=== PATIENT | female | born 1965 | race Hispanic/Latino ===

== ENCOUNTER 2021-08-10 00:49 | Day surgery (SDC) | payer OTHER, SELFPAY ==
[2021-07-27 13:49] VITALS: BMI 28.0
[2021-08-10 06:44] VITALS: BP 134/84; PULSE 83; RESP 18; TEMP 36.6; O2SAT 99
[2021-08-10] MEDS: LACTATED RINGERS 1,000 ML 150 ML IV CONT (06:55)
[2021-08-10 07:00] LABS: Glucose Point of Care 165 mg/dl (65-105)
--- NOTE | 2021-08-10 08:00 | WPDANESEPPF ---
Anes - Initial Pre Proc Eval Procedure: Operation Date: 08/10/21 08:15 Proposed Procedures p Screening Colonoscopy - Maninder Tejada MD Date/Time: 08/10/21 08:00 Surgeon: Maninder Tejada MD Pre Op Diagnosis: neoplasm screening Patient Data Age: 56 Gender: F Height: 1.6 m Weight: 72.1 kg Last Vital Signs Temp 97.8 F 08/10/21 06:44 Pulse 83 08/10/21 06:44 Resp 18 08/10/21 06:44 BP 134/84 08/10/21 06:44 Pulse Ox 99 08/10/21 06:44 O2 Del Method Room Air 08/10/21 06:44 Allergies Allergy/AdvReac Type Severity Reaction Status Date / Time cat dander Allergy Mild sneeze and Verified 08/10/21 06:43 cough house dust Allergy Mild sneeze and Verified 08/10/21 06:43 hives mold Allergy Mild sneezing Verified 08/10/21 06:43 and hives pollen extracts Allergy Mild sneeze and Verified 08/10/21 06:43 cough Home Medications Medication Instructions Recorded Confirmed Type cholecalciferol (vitamin D3) 50 50 mcg PO DAILY 06/24/21 07/27/21 History mcg (2,000 unit) capsule lisinopril 10 mg tablet 10 mg PO DAILY 06/24/21 07/27/21 History metformin 500 mg tablet 500 mg PO DAILY 06/24/21 07/27/21 History multivitamin 1 tablet PO DAILY 06/24/21 07/27/21 History rosuvastatin 20 mg tablet 20 mg PO DAILY 06/24/21 07/27/21 History semaglutide (Ozempic) 0.25 mg subcut WEEKLY 06/24/21 07/27/21 History vitamin B complex (B 1 tablet PO DAILY 06/24/21 07/27/21 History Complex-Vitamin B12) Laboratory Tests 08/10/21 06:51 POC Capillary Glucose 165 mg/dl H mg/dl (65-105) Patient hx anesthesia problems: none Family hx anesthesia problems: none Results Review: All pre-operative results and documents have been reviewed as part of the pre-operative evaluation. [facility]LY [facility] Past Medical History Medical History (Updated 06/29/21 @ 23:36 by Hollie Johnson MD) Benign essential HTN Diabetes mellitus Sadaf's thyroiditis Hyperlipidemia Kidney stones Family History Family History (Updated 06/24/21 @ 14:08 by Balbina Blandon) Father Colon cancer Diabetes mellitus Mother Diabetes mellitus Depression Heart disease Sibling Diabetes mellitus Depression Grandparent Diabetes mellitus Depression Social History Social History (Updated 06/24/21 @ 14:07 by Balbina Blandon) Social History: Smoking status: Never smoker Second hand tobacco smoke exposure: No Alcohol intake: current Drinks per week: 2 Alcohol use details: occasionally Substance use: never Substance use type: does not use Living arrangements: with family Gender identity (if verbalized by the patient): Female Sexual Orientation (if Verbalized by the Patient): Straight or Heterosexual Spiritual care concerns: No Anes - Eval Final PreProcedure Day of Procedure 08/10/21 08:00 Patient weight: normal Heart: regular rate and rhythm Lungs: clear to auscultation Airway: Mallampati scale class II Neurological: alert and oriented Last oral intake: >/= 8 hours ASA classification: III Emergent: no Anesthetic plan: proceed Anesthesia type and monitoring: general GIVS and standard monitoring Results Review: All pre-operative results and documents have been reviewed as part of the pre-operative evaluation. Informed Consent: The patient's anesthetic plan and its attendant risks and benefits were discussed with the patient/family/POA. Questions were solicited and answers provided to the satisfaction of the patient/family/POA.
--- NOTE | 2021-08-10 08:07 | PM.HPGS ---
History of Present Illness History of Present Illness Consent: Risks, benefits, and alternatives have been discussed and questions answered. Patient agrees to proceed with procedure. Chief complaint: neoplasm screening Narrative: Camila Christianson is a 56 year old female with last colonoscopy in 2016, father had colon cancer Review of Systems Constitutional: Constitutional: Denies headache(s) and Denies weakness Eyes: Eyes: Denies blurry vision ENT: Reports Normal hearing present, Denies headache(s) and Denies neck pain Cardiovascular: Cardiovascular: Denies chest pain and Denies dyspnea Respiratory: Respiratory: Denies dyspnea Gastrointestinal: Gastrointestinal: Reports no additional gastrointestinal complaints Genitourinary: Genitourinary: Denies dysuria Musculoskeletal: Musculoskeletal: Denies neck pain Integumentary/Breasts: Skin/Breast: Denies dry skin Neurologic: Reports Normal hearing present, Denies headache(s) and Denies weakness Psychiatric: Psychiatric: Denies anxiety Endocrine: Endocrine: Denies change in body appearance Hematologic/Lymphatic: Hematologic/Lymphatic: Denies easy bleeding Allergic/Immunologic: Allergic/Immunologic: Denies urticaria PMFSH Past Medical History Medical History (Updated 08/10/21 @ 08:08 by Maninder Tejada MD) Benign essential HTN Diabetes mellitus Family history of colon cancer in father Sadaf's thyroiditis Hyperlipidemia Kidney stones Family History Family History (Updated 06/24/21 @ 14:08 by Balbina Blandon) Father Colon cancer Diabetes mellitus Mother Diabetes mellitus Depression Heart disease Sibling Diabetes mellitus Depression Grandparent Diabetes mellitus Depression Social History Social History (Updated 06/24/21 @ 14:07 by Balbina Blandon) Social History: Smoking status: Never smoker Second hand tobacco smoke exposure: No Alcohol intake: current Drinks per week: 2 Alcohol use details: occasionally Substance use: never Substance use type: does not use Living arrangements: with family Gender identity (if verbalized by the patient): Female Sexual Orientation (if Verbalized by the Patient): Straight or Heterosexual Spiritual care concerns: No Meds Home Medications and Allergies Home Medications Medication Instructions Recorded Confirmed Type cholecalciferol (vitamin D3) 50 50 mcg PO DAILY 06/24/21 07/27/21 History mcg (2,000 unit) capsule lisinopril 10 mg tablet 10 mg PO DAILY 06/24/21 07/27/21 History metformin 500 mg tablet 500 mg PO DAILY 06/24/21 07/27/21 History multivitamin 1 tablet PO DAILY 06/24/21 07/27/21 History rosuvastatin 20 mg tablet 20 mg PO DAILY 06/24/21 07/27/21 History semaglutide (Ozempic) 0.25 mg subcut WEEKLY 06/24/21 07/27/21 History vitamin B complex (B 1 tablet PO DAILY 06/24/21 07/27/21 History Complex-Vitamin B12) Allergies Allergy/AdvReac Type Severity Reaction Status Date / Time cat dander Allergy Mild sneeze and Verified 08/10/21 06:43 cough house dust Allergy Mild sneeze and Verified 08/10/21 06:43 hives mold Allergy Mild sneezing Verified 08/10/21 06:43 and hives pollen extracts Allergy Mild sneeze and Verified 08/10/21 06:43 cough Vital Signs Vital Signs - 24 hr 08/10/21 06:44 Temperature 97.8 F Pulse Rate 83 Respiratory Rate 18 Blood Pressure 134/84 Pulse Oximetry 99 Oxygen Delivery Room Air Exam Const: General: comfortable and no acute distress HENMT: General nose exam: Normal nares present Eyes: General: appearance normal, both eyes and all related structures Neck: Neck: no JVD Resp: Auscultation: clear to auscultation bilaterally Cardio: Rate: regular rate Rhythm: regular rhythm GI: Inspection: non-distended GI Palp: Yes Soft to palpation Skin: General skin exam: normal color Neuro: General: gait normal Speech: normal speech Extrem: General: normal to inspe
[2021-08-10 08:32] VITALS: BP 118/67; PULSE 85; RESP 21; O2SAT 100
[2021-08-10 08:42] VITALS: BP 124/76; PULSE 75; RESP 14; O2SAT 100
[2021-08-10 08:52] VITALS: BP 136/83; PULSE 70; RESP 16; O2SAT 100
== END 2021-08-10 09:02 | disposition home or self-care (01) ==
PROVIDERS: PCP Family Medicine; Visit Provider Internal Medicine Gastroenterology
PROC: 0DJD8ZZ Inspection of Lower Intestinal Tract, Via Natural or Artificial Opening Endoscopic (ICD-10-PCS; CPT 45378; principal; 2021-08-10 08:15)
DX: Z12.11 Encounter for screening for malignant neoplasm of colon (principal); D12.0 Benign neoplasm of cecum; K57.30 Diverticulosis of large intestine without perforation or abscess without bleeding; K64.8 Other hemorrhoids; I10 Essential (primary) hypertension; E11.9 Type 2 diabetes mellitus without complications; E78.5 Hyperlipidemia, unspecified; E06.3 Autoimmune thyroiditis; Z80.0 Family history of malignant neoplasm of digestive organs; Z87.442 Personal history of urinary calculi
CPT/HCPCS: 45380; 82948; 88305; J2704; J7120

== ENCOUNTER 2021-09-15 17:41 | Emergency (ER) | payer OTHER, SELFPAY ==
--- NOTE | ~2021-09-15 | XR_ITS ---
XR femur RT min 2V DATE: 09/15/2021 18:20 INDICATION: Pain, swelling following injury TECHNIQUE: AP and lateral views of right femur COMPARISON: None FINDINGS: Mild superior pole patellar enthesopathy and more prominent patellar enthesopathy and true inferiorly at the patellar tendon insertion. No fracture or dislocation, periosteal reaction or bone destruction of the right femur. Normal alignm ent at the right hip and knee joints. IMPRESSION: No significant abnormality of the right femur. No fracture or dislocation or bone destruc tion Reviewed, dictated and finalized at location B. IMPRESSION: No significant abnormality of the right femur. No fracture or dislo cation or bone destruction
--- NOTE | ~2021-09-15 | XR_ITS ---
XR lumbar spine 2-3V DATE: 09/15/2021 18:41 INDICATION: Low back pain. No known injury. TECHNIQUE: AP, lateral, coned lateral lumbosacral views COMPARISON: None FINDINGS: There is normal alignment of the lumbar spine. There is moderate degenerative disease at L2-3. Minimal degenerative disc disease at L3-4. Remaining lumbar and lumbosacral interspaces are relatively preserved. No fracture or bone destruction or spondylolisthesis. The included lower thoracic and lumbar pedicles are intact. Degenerative change at the right sacroiliac joint. The sacral iliac joints are otherwise intact. IMPRESSION: Mild degenerative disc disease at L3-4, moderately prominent degenerative disc disease at L2-3 Reviewed, dictated and finalized at location B. IMPRESSION: Mild degenerative disc disease at L3-4, moderately prominent degene rative disc disease at L2-3
[2021-09-15 17:44] VITALS: BP 179/87; PULSE 87; RESP 12; TEMP 37; O2SAT 100
--- NOTE | 2021-09-15 18:21 | PC.NURSE ---
JOVANNA Solorzano at bedside to assess pt.
[2021-09-15] MEDS: HYDROcodone/acetaminophen (*CRX) 5-325 MG TABLET 1 TAB PO (18:32)
--- NOTE | 2021-09-15 18:33 | ED.LOWEXIN ---
HPI - Extremity Injury (Lower) General Chief Complaint: Extremity Injury, Lower Stated Complaint: right leg pain Time Seen by Provider: 09/15/21 17:53 Source: patient Mode of arrival: ambulatory Limitations: no limitations History of Present Illness HPI Narrative: This is a 56-year-old female that presents to the emergency department after an injury just prior to arrival. Reports she was sitting in a dental chair and her right leg accidentally got pinned in between the chair and the armrest. She believes her leg was stuck for a couple of minutes before the dentist was able to help her get her leg out. She has had pain in the right thigh since. She also has now started to have some low back pain and soreness. Denies numbness or weakness. Related Data Home Medications Medication Instructions Recorded Confirmed cholecalciferol (vitamin D3) 50 50 mcg PO DAILY 06/24/21 07/27/21 mcg (2,000 unit) capsule lisinopril 10 mg tablet 10 mg PO DAILY 06/24/21 07/27/21 metformin 500 mg tablet 500 mg PO DAILY 06/24/21 07/27/21 multivitamin 1 tablet PO DAILY 06/24/21 07/27/21 rosuvastatin 20 mg tablet 20 mg PO DAILY 06/24/21 07/27/21 semaglutide 0.25 mg or 0.5 mg (2 0.25 mg subcut WEEKLY 06/24/21 07/27/21 mg/1.5 mL) subcutaneous pen injector (Ozempic) vitamin B complex (B 1 tablet PO DAILY 06/24/21 07/27/21 Complex-Vitamin B12 tablet) Allergies Allergy/AdvReac Type Severity Reaction Status Date / Time cat dander Allergy Mild sneeze and Verified 09/15/21 18:46 cough house dust Allergy Mild sneeze and Verified 09/15/21 18:46 hives mold Allergy Mild sneezing Verified 09/15/21 18:46 and hives pollen extracts Allergy Mild sneeze and Verified 09/15/21 18:46 cough Review of Systems Review of Systems: CONSTITUTIONAL: Denies fever, MUSCULOSKELETAL: Reports back pain, joint pain, and myalgia. NEUROLOGIC: Denies numbness, or weakness. All systems reviewed & are unremarkable except as noted in HPI and below PMFSH Past Medical History Medical History Benign essential HTN Diabetes mellitus Family history of colon cancer in father Sadaf's thyroiditis Hyperlipidemia Kidney stones Family History Family History Father Colon cancer Diabetes mellitus Mother Diabetes mellitus Depression Heart disease Sibling Diabetes mellitus Depression Grandparent Diabetes mellitus Depression Social History Social History (Updated 08/31/21 @ 15:25 by Balbina Blandon) Social History: Smoking status: Never smoker Second hand tobacco smoke exposure: No Alcohol intake: current Alcohol use details: occasionally Substance use: never Substance use type: does not use Gender identity (if verbalized by the patient): Female Sexual Orientation (if Verbalized by the Patient): Straight or Heterosexual Spiritual care concerns: No Exam Narrative: GENERAL: Well-appearing, well-nourished, and in no acute distress. HEAD: Normocephalic, atraumatic. EYES: EOMI. CHEST: No respiratory distress. HEART: Regular rate EXTREMITIES: Normal range of motion. No edema. Normal DP pulse. Normal sensation. Strength equal in bilateral lower extremities (5/5). Compartments are soft SKIN: Warm, dry, no rash. NEURO: No focal deficits. Alert and oriented x3. PSYCH: Normal mood and affect Course Vital Signs Vital signs: Vital Signs Temperature 98.6 F 09/15/21 17:44 Pulse Rate 87 09/15/21 17:44 Respiratory Rate 12 09/15/21 17:44 Blood Pressure 179/87 H 09/15/21 17:44 Pulse Oximetry 100 09/15/21 17:44 Oxygen Delivery Room Air 09/15/21 17:44 Temperature 98.6 F 09/15/21 17:44 Pulse Rate 87 09/15/21 17:44 Respiratory Rate 12 09/15/21 17:44 Blood Pressure 179/87 H 09/15/21 17:44 Pulse Oximetry 100 09/15/21 17:44 Oxygen Delivery Room Air 09/15/21 17:44
--- NOTE | 2021-09-15 18:34 | PC.NURSE ---
Patient back to Radiology fro xay of back
[2021-09-15 19:03] LABS: Basophils Absolute Auto 0.1 K/mm3 (0.0-0.1); Basophils Percent Auto 0.6 % (0.2-1.2); Eosinophils Absolute Auto 0.4 K/mm3 (0-0.3); Eosinophils Percent Auto 4.1 % (0-4.4); Hematocrit 43.2 % (37.0-47.0); Immature Granulocyte Absolute 0.02 K/mm3 (0.00-0.031); Immature Granulocyte Percent A 0.2 % (0-0.5); Lymphocytes Absolute Auto 1.68 K/mm3 (0.9-3.2); Lymphocytes Percent Auto 19.1 % (18.3-44.2); Mean Corpuscular HGB Conc 32.4 g/dl (32-36); Mean Corpuscular Hemoglobin 30.6 pg (26-34); Mean Corpuscular Volume 94.3 fl (80-100); Mean Platelet Volume 11.2 fl (7.4-10.4); Monocytes Absolute Auto 0.7 K/mm3 (0.1-0.6); Monocytes Percent Auto 7.8 % (2.6-8.5); Neutrophils Percent Auto 68.2 % (45.5-73.1); Platelet Count Result 235 k/mm3 (150-375); Red Blood Count 4.58 M/mm3 (4.2-5.4); Red Cell Distribution Width 12.7 % (11.5-14.5); White Blood Count 8.8 K/mm3 (4.5-10.0)
--- NOTE | 2021-09-15 19:11 | PC.NURSE ---
Patient report given to STEFF Sanford. All questions answered and care of patient transferred.
[2021-09-15 19:13] LABS: Alanine Aminotransferase 58 U/L (6-35); Albumin Level 4.8 g/dL (3.5-5.1); Alkaline Phosphatase 97 U/L (38-126); Anion Gap 9 mmol/L (8-16); Aspartate Amino Transferase 37 U/L (14-36); Bilirubin,Total 0.4 mg/dL (0.2-1.3); Blood Urea Nitrogen 13 mg/dL (7-17); Calcium 9.5 mg/dL (8.4-10.2); Carbon Dioxide 25 mmol/L (22-30); Chloride 105 mmol/L (98-107); Creatine Kinase 223 U/L (30-135); Estimated CRCL calculation 67 ml/min; Estimated Glomerular Filt Rate > 60; Glucose 155 mg/dL (65-110); Sodium 139 mmol/L (137-145)
[2021-09-15] MEDS: SODIUM CHLORIDE 0.9% IV 1,000 ML 999 ML IV CONT (20:19)
== END 2021-09-15 21:15 | disposition home or self-care (01) ==
PROVIDERS: Physician Assistant; Emergency Provider Preventive Medicine Aerospace Medicine; PCP Family Medicine
DX: S89.91XA Unspecified injury of right lower leg, initial encounter (principal); M54.50 Low back pain, unspecified; I10 Essential (primary) hypertension; E11.9 Type 2 diabetes mellitus without complications; E06.3 Autoimmune thyroiditis; E78.5 Hyperlipidemia, unspecified; Z87.442 Personal history of urinary calculi; Z79.84 Long term (current) use of oral hypoglycemic drugs; M51.36 Other intervertebral disc degeneration, lumbar region; W23.1XXA Caught, crushed, jammed, or pinched between stationary objects, initial encounter
CPT/HCPCS: 36415; 72100; 73552; 80053; 82550; 85025; 96360; 99284; A9270; J7030

== ENCOUNTER 2024-09-18 14:02 | Outpatient (CLI) | payer OTHER, SELFPAY ==
--- NOTE | ~2024-09-18 | MR_ITS ---
MRI of the lumbar spine Clinical History: Right sciatica Technique: Axial T2-weighted images, and sagittal T1-weighted, T2-weighted, and T2 fat-sat images wer e acquired. Findings: There is no fracture or subluxation of the lumbar spine. Vertebral bodies maintain normal h eight and alignment. No bone marrow signal abnormality seen. At L1-L2, there is no disc bulge or herniation. There is mild to moderate facet hypertrophy. No spina l canal stenosis or neural foraminal narrowing. At L2-L3, there is minimal degenerative disc narrowing with moderate facet hypertrophy. No spinal can al stenosis or neural foraminal narrowing. At L3-L4, there is moderate facet arthropathy. No spinal canal stenosis or neural foraminal narrowing . At L4-L5, there is minimal disc bulge. There is moderate facet hypertrophy. No spinal canal stenosis or neural foraminal narrowing. At L5-S1, there is a large disc extrusion at the right paracentral region extending inferiorly, behin d the S1 vertebral body, probably impinging the descending right-sided S1-S2 level nerve root. No fra nk spinal canal stenosis at the L5 and S1 level, there is right lateral recess stenosis. There is mod erate to advanced right neural foraminal narrowing. Left neural foramen preserved. Paravertebral soft tissues are otherwise unremarkable. Impression: Large disc extrusion the right paracentral region at L5-S1, extending inferiorly behind the S1 verteb ral body, and probably impinging the descending right-sided S1-S2 level nerve root. Additional right lateral recess stenosis and moderate to advanced right neural foraminal narrowing at L5-S1. Reviewed, dictated and finalized at [facility]. Impression: Large disc extrusion the right paracentral region at L5-S1, extending inferiorl y behind the S1 vertebral body, and probably impinging the descending right-kimberlee ed S1-S2 level nerve root. Additional right lateral recess stenosis and moderate to advanced right neural foraminal narrowing at L5-S1.
--- OUTSIDE RECORDS SUMMARY | 2024-09-18 14:08 | XMS_ITS | Clinical Summary ---
Author Organization [facility] [address] [place] [address] Phone Care Team Providers Care Liner Checker Name Role Phone Jah Agustin MD Primary Care Provider [phone] Allergies Active Allergy Reactions Criticality Noted Date Comments Sulfamethoxazole-Trimethoprim Rash Medium 2019 Medications multivitamin capsule take 1 capsule by oral route every day 0 2 Active metFORMIN (GLUCOPHAGE) 1,000 mg tablet take 1 tablet by oral route 2 times every day with morning and evening meals 0 0 4 Active lancets 33 gauge misc OneTouch Delica Lancets 33 gauge Active blood glucose diagnostic strip OneTouch Verio strips Active lisinopriL (PRINIVIL,ZESTR IL) 10 mg tablet Take 10 mg by mouth daily Active cyanocobalamin (Vitamin B-12) 1,000 mcg tabletIndicatio ns:Prevention of Vitamin B12 Deficiency Take 1,000 mcg by mouth daily Active semaglutide (Ozempic) 0.25 mg or 0.5 mg(2 mg/1.5 mL) pen injector injection Ozempic 0.25 mg or 0.5 mg (2 mg/1.5 mL) subcutaneous pen injector INJECT 0.5MG EVERY WEEK BY SUBCUTANEOUS ROUTE WITH MEALS FOR 30 DAYS Active triamcinolone (KENALOG) 0.1 % ointmentIndicat ions:Acute vulvitis Apply topically 2 (two) times a day as needed for irritation 30 g 3 2 Active Active Problems Problem Noted Date Diagnosed Date Type 2 diabetes mellitus 01/23/2014 Overview (06/23/2016): Diabetes mellitus type 2 Surgical History Surgery Date Site/Laterality Comments SECTION , HELLP @ 33wks: section Medical History Medical History Date Comments Hx Other Medical , HELL P @ 33wks; Comments: RED 01/23/2014 - Family History Medical History Relation Name Comments Diabetes Mother Diabetes mellit us; Diabetes Sister x2 Diabetes mellit us; Relation Name Status Comments Mother Sister x2 Social History Tobacco Use Types Packs/Day Years Used Date Smoking Tobacco: Never Smokeless Tobacco: Never Tobacco Cessation:Counseling Given: Not Answered Alcohol Use Standard Drinks/Week Comments Yes 0 (1 standard drink = 0.6 oz pur e alcohol) Comments No Sex and Gender Information Value Date Recorded Sex Assigned at Not on file Legal Sex Female 1:42 AM JAILOR Gender Identity Not on file Sexual Orientation Not on file 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 Not on file Not on file Not on file Obstetrics History Para Term AB IAB SAB Ectopic Multiple Livin g Live Births 2 1 0 1 1 1 Date Outcome GA Total Labor Labor/2nd/3rd Weight Sex Type Anes PTL [place] A1 A5 Name Clin AB Last Filed Vital Signs Vital Sign Reading Time Taken Comments Blood Pressure 126/76 01/16/2022 9:56 AM CDT Pulse 70 12/17/2012 3:39 PM CDT Temperature 36 C (96.8 F) 12/22/2019 9:51 AM CDT Respiratory Rate - - Oxygen Saturation - - Inhaled Oxygen Concentration - - Weight 72.2 kg (159 lb 3.2 oz) 01/16/2022 9:56 A M CDT Height 161.3 cm (5' 3.5) 01/16/2022 9:56 AM CDT Body Mass Index 27.76 01/16/2022 9:56 AM CDT Plan of Treatment Health Maintenance Due Date Last Done Comments Albumin Creatinine Ratio, Urine 1965 Colon Cancer Screening-Colonoscopy 1965 Depression Screening 1965 Hemoglobin A1C 1965 Hepatitis C Screening 1965 eGFR 1965 Dilated Eye Exam 1965 Foot Exam 1965 Lipid Panel 1965 DTaP/Tdap/Td Vaccine (1 - Tdap) 1976 Hepatitis B Screening 1983 Pneumococcal vaccine <65 (1 of 2 - PCV) 1984 Zoster Vaccine (1 of 2) 2015 Breast Cancer Screening-Mammogram 01/21/2022 01/21/2021, 11/11/2019, 2018, Additional history exists Cervical Cancer Screening 01/16/20232021, 04/02/2017, 12/17/2012, Additional history exists Regular Well Visit/Exam 18-64 01/16/2023, 01/13/2021, 12/22/2019, Additional history exists Influenza Vaccine (#1) 2024 12/18/2017 Procedures Procedure Name Priority Date/Time Associated Diagnosis Comments PAP AND HIGH RISK HPV, REFLEX TO GENOTYPING Routine 01/16/2022 11:38 AM CDT Screening for malignant neoplasm of the cervix SCREENING MAMMOGRAM BILATERAL W SALEEM Schedule Routine, Read Routine (OP Routine) 01/21/2021 8:59 AM CDT Encounter for screening mammogram for breast cancer from Last 3 Months or Most Recently Relevant to Health Maintenance Results * Pap and High Risk HPV, reflex to Genotyping (01/16/2022 11:38 AM CDT) Thin prep (Pap test) 01/16/2022 11:38 AM CDT 01/16/2022 11:38 AM CDT Narrative PATHOLOGY CH - 01/18/2022 12:13 PM CDT [facility] Department of Pathology [address] [place], [place] [id number] Final Report with Addendum Note to Patients: This report may contain a detailed description of human tissue sent by a health care provider to the laboratory for pathologic evaluation. The content of this report is essential for diagnosis and may provide important critical findings. This information may be unfamiliar to patients to review without a medical professional present. It is advised that the patient review this report in the presence of a health care provider who can answer questions and explain the details. Patient Name: CAMILA CHRISTIANSON Address: [address] [place] [address] [place] [address] Gender: F : 1965 (Age: 56) Service: Laboratory Location: Hospital #: [id number] Patient Type: SPECIMEN Taken: 01/16/2022 Received: 01/16/2022 Accessioned:: 01/17/2022 Reported: 01/18/2022 Physician(s): MD Claribel Figuerao MD Diagnosis: Source of Specimen: SCREENING THIN PREP IMAGED PAP w/ HPV Specimen Adequacy: - Satisfactory for evaluation; endocervical/transformation zone component present General Category: - Negative for intraepithelial lesion or malignancy KELLY Haley(ASCP) Report Electronically Reviewed and Signed Out By KELLY Haley(ASCP) 01/18/2022 12:13:30Addenda: HPV Test Interpretation NEGATIVE for types 16, 18, 31, 33, 35, 39, 45, 51, 52, 56, 58, 59, 66 and 68. Test performed utilizing Gen-Probe Aptima assay. KELLY Boyd(ASCP)Report Electronically Reviewed and Signed Out By SANTY BoydASC) 01/18/2022 09:42:47 Specimen(s) Received: A: SCREENING THIN PREP IMAGED PAP w/ HPV Clinical History: Menstrual History: Post-menopausal Previous Negative Pap: 03/2017 The Pap test is a screening test used to aid in the detection of cervical cancer and its precursors. It should not be the sole means by which malignant and premalignant lesions are diagnosed. Both false negative and false positive results may occur. It also has poor sensitivity for the detection of endometrial lesions and should not be used to evaluate suspected endometrial abnormalities. For these reasons it is most important to obtain Pap tests at regular intervals. The performance characteristics of some immunohistochemical stains, fluorescence in-situ hybridization tests and immunophenotyping by flow cytometry cited in this report (if any) were determined by the Surgical Pathology Department at [facility] as part of an ongoing quality systems engineer program and in compliance with federally mandated regulations drawn from the Clinical Laboratory Improvement Act of 1988 (CLIA '88). Some of these tests rely on the use of analyte specific reagents and are subject to specific labeling requirements by the US Food and Drug Administration. Such diagnostic tests may only be performed in a facility that is certified by the Department of Health and Human Services as a high complexity laboratory under CLIA '88. The FDA has determined that such clearance or approval is not necessary. This test is used for clinical purposes. It should not be regarded as investigational or for research. Nevertheless, federal rules concerning the medical use of analyte specific reagents require that the following disclaimer be attached to the report: This test was developed and its performance characteristics determined by the Surgical Pathology Department [facility]. It has not been cleared or approved by the U. S. Food and Drug Administration. Claribel Espinoza MD LAB CYTOLOGY ORDERABL ES Final Result PATHOLOGY [address] [place] [address] * Screening Mammogram Bilateral W Saleem (01/21/2021 8:59 AM CDT) Anatomical Region Laterality Modality Breast Bilateral Mammography Narrative 01/21/2021 2:48 PM CDT BILATERAL DIGITAL MAMMOGRAPHY The present examination has been compared to prior imaging studies dated 11 November 2019. Mammography Findings CAD (computer-aided detection) software was utilized. The breasts are heterogeneously dense. This may lower the sensitivity of mammography. No masses, significant calcifications or other abnormalities are seen. Impression There is no mammographic evidence of malignancy. Screening mammogram in 1 year is recommended. BI-RADS Category 1: Negative PATIENT LETTER SENT Claribel Espinoza MD IMG MAMMO PROCEDURES Final Result from Last 3 Months or Most Recently Relevant to Health Maintenance Insurance [employer] [facility] [place] [address] [place] [id number] [facility] [id number] Care Teams Liner Checker Relationship Specialty Start Date End Date Jah Agustin MD [address] [place] [address] PCP - General 01/22/14
--- OUTSIDE RECORDS SUMMARY | 2024-09-18 14:08 | XMS_ITS | Referral Summary ---
Author Organization [facility] 1 uTaP Address [address] [place] [address] Phone Care Team Providers Care Specialist Managers Name Role Phone Jah Agustin MD Primary Care Provider [phone] Allergies Active Allergy Reactions Criticality Noted Date [...] 01/23/2014 Overview (06/23/2016): Diabetes mellitus type 2 Social History Tobacco Use Types Packs/Day Years Used Date Smoking Tobacco: Never Smokeless Tobacco: Never Tobacco Cessation:Counseling Given: Not Answered Alcohol Use Standard Drinks/Week Comments Yes 0 (1 standard drink = 0.6 oz pur e alcohol) Comments No Sex and Gender Information Value Date Recorded Sex Assigned at Not on file Legal Sex Female 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 Gender Identity Not on file Sexual Orientation Not on file 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 Not on file Not on file Not on file Last Filed Vital Signs Vital Sign Reading [...] 01/16/2022 9:56 AM CDT Plan of Treatment Not on file Procedures Procedure Name Priority Date/Time Associated Diagnosis Comments PAP AND HIGH RISK HPV, REFLEX TO GENOTYPING Routine 01/16/2022 11:38 AM CDT Screening for malignant neoplasm of the cervix SCREENING MAMMOGRAM BILATERAL W TYLER Schedule Routine, Read Routine (OP Routine) 01/21/2021 8:59 AM CDT Encounter for screening mammogram for breast cancer from Last 3 Months or Most Recently Relevant to Health Maintenance Results * Pap and High Risk HPV, reflex to Genotyping (01/16/2022 11:38 AM CDT) Thin prep (Pap test) 01/16/2022 11:38 AM CDT 01/16/2022 11:38 AM CDT Narrative PATHOLOGY CH - 01/18/2022 12:13 PM CDT [facility] Department of Pathology [address] [place], [place] [id number] Final Report with Addendum Note to Patients: [...] questions and explain the details. Patient Name: YANCI CHRISTIANSON Address: [address] [place] [address] Gender: F : 1965 (Age: 56) Service: Laboratory Location: [facility] #: [id number] Patient Type: SPECIMEN Taken: 01/16/2022 Received: 01/16/2022 Accessioned:: 01/17/2022 Reported: 01/18/2022 Physician(s): MD Claribel Figueroa MD Diagnosis: Source of Specimen: SCREENING THIN PREP IMAGED PAP w/ HPV Specimen Adequacy: - Satisfactory for evaluation; endocervical/transformation zone component present General Category: - Negative for intraepithelial lesion or malignancy KELLY Haley(ASCP) Report Electronically Reviewed and Signed Out By SANTY HaleyASC) 01/18/2022 12:13:30Addenda: HPV Test Interpretation NEGATIVE for types 16, 18, 31, 33, 35, 39, 45, 51, 52, 56, 58, 59, 66 and 68. Test performed utilizing Gen-Probe Aptima assay. KELLY Boyd(ASCP)Report Electronically Reviewed and Signed Out By KELLY Boyd(ASCP) 01/18/2022 09:42:47 Specimen(s) Received: A: SCREENING THIN [...] determined by the Surgical Pathology Department at [facility] as part of an ongoing quality specialist program and in compliance with federally mandated [...] characteristics determined by the Surgical Pathology Department [facility]. It has not been cleared or approved by the U. S. Food and Drug Administration. Claribel Espinoza MD LAB CYTOLOGY ORDERABL ES Final Result PATHOLOGY [address] [place] [address] * Screening Mammogram Bilateral W Tyler (01/21/2021 8:59 AM CDT) Anatomical Region Laterality [...] Most Recently Relevant to Health Maintenance Insurance [facility] Address: [address] [place] [address] [facility] [id number] [facility] [id number] Care Teams Specialist Managers Relationship Specialty Start Date End Date Jah Agustin MD [address] [place] [address] PCP - General 01/22/14
--- OUTSIDE RECORDS SUMMARY | 2024-09-18 14:08 | XMS_ITS | Data Portability ---
Author Organization [facility] [employer], Main Office Address [address] [place] [address] Assessment No assessment recorded. Plan of Treatment Reminders Order Date Submit Date Provider Last Modified By Organization Details Last Modified Time Details Appointments None recorded. Lab None recorded. Referral None recorded. Procedures None recorded. Surgeries None recorded. Imaging None recorded. Medication Orders metformin 1,000 mg tablet 2022 023 [facility] [address] [place], [address], 3 11:22:41 Ozempic 1 mg/dose (4 mg/3 mL) subcutaneou s pen injector 2022 023 [facility] [address] [place], [address], 3 13:44:42 rosuvastati n 20 mg tablet 2022 023 [facility] [address] [place], [address], 3 11:22:37 lisinopril 5 mg tablet [address] [facility] [address] [place], [address], 3 13:47:40 Patient TargetsNo targets recorded. Patient InstructionsNo instructions recorded. Reason for Referral None Reported. Results Created Date Observation Date Name Description Value Unit Range Abnormal Flag Note LastModifiedBy Organization Detail LastModifiedTime Result Notes None recorded. Problems Name Problem SNOMED Code Status Onset Date Resolution Date Notes Provider Name and Address Organization Details Recorded Time Sadaf thyroiditi s 70002241 Active 2021 Not Available [facility] 3 18:20:15 Dyslipidem ia 574097213 Active 2021 Not Available [facility] 3 18:20:15 Type 2 diabetes mellitus 37217412 Active 2018 Not Available [facility] 3 18:20:15 Well controlled type 2 diabetes mellitus 297465581 Active 2021 Not Available [facility] 3 18:20:15 Essential hypertensi on 23546057 Active 2021 Not Available [facility] 3 18:20:15 Liver enzymes level above reference range 676547430 Active 2021 Not Available [facility] 3 18:20:15 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 Procedures Surgical History Date Name Laterality Status Provider Name and Address Organization Details Recorded Time 1 delivery completed Not Available [facility] 05/17/2022 18:19:38 Imaging Results None recorded. Procedure Notes None recorded. Medical Equipment None Reported. Allergies No known drug allergies Medications Name Sig Start Date Stop Date Status Note LastModified by Organization Details LastModified Time Prescriptio n - Prior Authorizati on Request USE WITH OZEMPIC INJECTION S ONCE WEEKLY active Not Available Not Available No t Available cyclobenzap rine 10 mg tablet TK 1 T PO QHS PRF SPASMS 12/30 completed Not Available Not Available Not Available prednisone 10 mg tablet TAKE 4 TABLETS BY MOUTH ONCE DAILY FOR 3 DAYS THEN 3 ONCE DAILY FOR 3 DAYS THEN 2 ONCE DAILY FOR 3 DAYS THEN 1 ONCE DAILY FOR 3 DAYS active Not Available Not Available No t Available tizanidine 2 mg tablet TAKE 1 TABLET BY MOUTH THREE TIMES DAILY NEEDED FOR MUSCLE SPASTICIT Y active Not Available Not Available No t Available triamcinolo ne acetonide 0.5 % topical cream APPLY 1 GRAM OF CREAM TOPICALLY TWICE DAILY NEEDED IRRITATIO N 09/07 completed Not Available Not Available Not Available meloxicam 15 mg tablet TK 1/2 T PO BID PRN PAIN 12/30 completed Not Available Not Available Not Available sulfamethox azole 800 mg-trimetho prim 160 mg tablet TK 1 T PO BID FOR 10 DAYS 09/07 completed Not Available Not Available Not Available amoxicillin 875 mg tablet 09/07 completed Not Available Not Available Not Available metformin 1,000 mg tablet TAKE 1 TABLET BY MOUTH TWICE DAILY BEFORE MEAL(S) active Not Available Not Available No t Available triamcinolo ne acetonide 0.1 % topical ointment APPLY OINTMENT TOPICALLY TWICE DAILY NEEDED FOR IRRITATIO N active Not Available Not Available No t Available lisinopril 10 mg tablet Take 1 tablet by mouth once daily in the morning for 90 days active Not Available Not Available No t Available lisinopril 5 mg tablet Take 1 tablet every day by oral route in the morning for 90 days. 2022 active Not Available Not Available Not Avai lable methylpredn isolone 4 mg tablets in a dose pack FPD 09/07 completed Not Available Not Available Not Available hydrocortis one 2.5 % topical ointment APPLY TWICE DAILY NEEDED active Not Available Not Available No t Available fluticasone propionate 50 mcg/actuati on nasal spray,suspe nsion USE 1 SPRAY(S) IN EACH NOSTRIL ONCE DAILY active Not Available Not Available No t Available metformin ER 500 mg tablet,exte nded release 24 hr Take 1 tablet twice a day by oral route with meals for 90 days. 12/28 completed Not Available Not Available Not Available rosuvastati n 20 mg tablet Take 1 tablet every other day by oral route for 90 days. 2022 active Not Available Not Available Not Avai lable Symbicort 160 mcg-4.5 mcg/actuati on HFA aerosol inhaler INHALE 1 PUFF BY MOUTH TWICE DAILY active Not Available Not Available No t Available azelastine 205.5 mcg (0.15 %) nasal spray USE ONE SPRAY IN EACH NOSTRIL ONCE DAILY AT BEDTIME active Not Available Not Available No t Available OneTouch Delica Lancets 33 gauge 03/07 completed Not Available Not Available Not Available OneTouch Verio test strips USE 1 STRIP TO CHECK GLUCOSE THREE TIMES DAILY BEFORE MEAL(S) 03/07 completed Not Available Not Available Not Available Trulicity 1.5 mg/0.5 mL subcutaneou s pen injector INJECT 0.5ML BY INTRAMUSC ULARLY ONCE WEEKLY WITH A MEAL active Not Available Not Available No t Available Bydureon BCise 2 mg/0.85 mL subcutaneou s auto-inject or Inject 2 mg every week by subcutane ous route with meals for 30 days. 03/07 completed Not Available Not Available Not Available Ozempic 1 mg/dose (2 mg/1.5 mL) subcutaneou s pen injector INJECT 0.5MG UNDER THE SKIN ONCE WEEKLY WITH MEALS 03/07 completed Not Available Not Available Not Available Ozempic 0.25 mg or 0.5 mg (2 mg/1.5 mL) subcutaneou s pen injector INJECT 0.5 MG EVERY WEEK BY SUBCUTANE OUS ROUTE WITH MEALS FOR 30 DAYS active Not Available Not Available No t Available Ozempic 1 mg/dose (4 mg/3 mL) subcutaneou s pen injector INJECT 1 MG SUBCUTANE OUSLY ONCE A WEEK AT DINNER active Not Available Not Available No t Available Paxlovid 300 mg (150 mg x 2)-100 mg tablets in a dose pack TAKE 3 TABLETS TOGETHER (TWO 150 MG NIRMATREL VIR TABLETS AND ONE 100 MG RITONAVIR TABLET) BY MOUTH TWICE DAILY FOR 5 DAYS. active Not Available Not Available No t Available Ozempic 0.25 mg or 0.5 mg (2 mg/3 mL) subcutaneou s pen injector INJECT 0.5MG SUBCUTANE OUSLY ONCE A WEEK WITH MEALS active Not Available Not Available No t Available Vitals Date Recorded Body mass index (BMI) Body height Oxygen saturation Oxygen saturation in Arterial blood by Pulse oximetry Heart rate Body temperature Body weight Systolic And Diastolic Provider Name and Address Organization Details Last Updated DateTime 2 26.6 kg/m2 162.56 cm 99 % 99 % 88 /min 97.9 [degF] 14983.8 2 g 105/70 mm[Hg] Not Available [facility] 3 18:19:49 Date Recorded Body mass index (BMI) Body height Oxygen saturation Oxygen saturation in Arterial blood by Pulse oximetry Heart rate Body temperature Body weight Systolic And Diastolic Provider Name and Address Organization Details Last Updated DateTime 1 21.1 kg/m2 162.56 cm 99 % 99 % 76 /min 98.1 [degF] 03176.8 6 g 146/88 mm[Hg] Not Available [facility] 3 18:19:49 Date Recorded Body mass index (BMI) Body height Oxygen saturation Oxygen saturation in Arterial blood by Pulse oximetry Heart rate Body temperature Body weight Systolic And Diastolic Provider Name and Address Organization Details Last Updated DateTime 2 27.2 kg/m2 162.56 cm 97 % 97 % 81 /min 97.8 [degF] 78478.0 3 g 110/75 mm[Hg] Not Available [facility] 3 18:19:49 Date Recorded Body weight Body mass index (BMI) Body height Heart rate Body temperature Systolic And Diastolic Provider Name and Address Organization Details Last Updated DateTime 3 46234.1 6 g 27.1 kg/m2 162.56 cm 74 /min 97.3 [degF] 108/76 mm[Hg] Dasha Murguia MA [place] [facility] 3 11:08:01 Date Recorded Body mass index (BMI) Body height Oxygen saturation Oxygen saturation in Arterial blood by Pulse oximetry Heart rate Body temperature Body weight Systolic And Diastolic Provider Name and Address Organization Details Last Updated DateTime 1 26.8 kg/m2 162.56 cm 98 % 98 % 79 /min 98.1 [degF] 64697.4 1 g 138/78 mm[Hg] Not Available [facility] 3 18:19:49 Social History Question Answer Notes LastModified by Organizat ion Details LastModified Time Tobacco Smoking Status Never Smoker Not Available [facility] 05/17/2022 18:19:33 What Is Your Level Of Caffeine Consumption? Moderate [id number] Information not available 05/17/2022 In The 14 Days Before Symptom Onset, Have You Had Close Contact With A Laboratory-confirm ed COVID-19 While That Case Was Ill? No [id number] Information not available 05/17/2022 In The 14 Days Before Symptom Onset, Have You Had Close Contact With A Person Who Is Under Investigation For COVID-19 While That Person Was Ill? No [id number] Information not available 05/17/2022 Which Illicit Or Recreational Drugs Have You Used? None [id number] Information not available 05/17/2022 What Is Your Relationship Status? [id number] Information not available 05/17/2022 Have You Recently Traveled Abroad? No [id number] Information not available 05/17/2022 Sex: Female Functional Status Question Answer Note LastModified by Organizat ion Details LastModified Time What is your level of alcohol consumption? Moderate [id number] Information not available 05/17/2022 Do you or have you ever used smokeless tobacco? 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 Never used electronic cigarettes [id number] Information not available 05/17/2022 Mental Status None recorded. Family History Relationship Description Onset Age of this Age Resolved Age Notes LastModified by Organization Details LastModified Time Maternal Grandmother Diabetes mellitus [id number] Not available 05/17/2022 18:19:39 Mother Diabetes mellitus [id number] Not available 05/17/2022 18:19:39 Mother Kidney disease [id number] Not available 05/17/2022 18:19:39 Mother Heart disease [id number] Not available 05/17/2022 18:19:39 Mother Chronic cold agglutinin disease [id number] Not available 05/17/2022 18:19:39 Maternal Aunt Diabetes mellitus [id number] Not available 05/17/2022 18:19:39 Father Diabetes mellitus [id number] Not available 05/17/2022 18:19:39 Father Malignant tumor of colon [id number] Not available 05/17/2022 18:19:39 Sister Diabetes mellitus 3 sister s [id number] Not available 05/17/2022 18:19:39 Sister Granulomatos is [id number] Not available 05/17/2022 18:19:39 Medical History Condition Response EYE PROBLEMS Y DIABETES, TYPE Y HAVE YOU BEEN HOSPITALIZED OR SEEN IN HEALTH SYSTEM ER IN THE PAST YEAR ? Y Gynecological HistoryNo gynecological history recorded. Obstetrics History GPAL:G 0 P 0 0 0 0 Past Encounters Encounter ID Performer Location Encounter Start Date Encounter Closed Date Diagnosis/Indication Diagnosis SNOMED-CT Code Diagnosis ICD10 Code Diagnosis Note [id number] Diana Lilly MD [facility] [address] [place] [address] 09/07/2020 00:00:00 09/07/2020 13:05:42 [id number] Diana Lilly MD [facility] [address] [place] [address] 12/28/2020 00:00:00 12/28/2020 15:11:53 [id number] Diana Lilly MD [facility] [address] [place] [address] 05/03/2021 00:00:00 05/03/2021 18:26:51 [id number] [facility] [place] [address] [place] [address] 12/07/2021 00:00:00 12/07/2021 14:07:09 [id number] Diana Lilly MD [facility] [address] [place] [address] 12/14/2022 10:46:57 12/14/2022 11:27:11 Well controlled type 2 diabetes mellitus 766399077 E11.9 A1C of 8.1%- patient just restarted ozempic as of 6 weeks ago and now up to 0.5 mg weekly dose- cost is a concern for patient- due to annual income patient provided novonordis k patient assistance applicatio n to provide her access to affordable treatment. She is aware of my final day and advised to return this packet back to clinic next week so we are able to process this for her to maintain treatment. continue metformin for insulin sensitizat ion. we have no samples of 0.5 or 1 mg ozempic- provided 2 mg dosing and patient aware to only pull up to 15 clicks to get half dose /equivalen t to 1 mg dose- will send in more pen needles to help with longevity of pen. Essential hypertension 01886419 I10 Continue on lisinopril as her blood pressure is in range and provide lower dose as this is more tolerable for patient. Dyslipidemia 679513861 E 78.5 Continue on rosuvastat in as LDL in range. Spent up to 25 minutes preparing to see the patient (eg, review of tests), obtaining and/or reviewing separately obtained history, performing a medically appropriat e examinatio n and evaluation , counseling and educating the patient, ordering medication s, tests, along with documentin g clinical informatio n in the electronic health record, independen tly interpreti ng results and communicat ing results to the patient. Patient can be followed by PCP - she/he is aware of my resignatio n and last day of December 29. If needed his/her PCP can refer patient to another endocrinol ogist in the area. All questions /concerns answered and refills necessary at visit today. Health Concerns Section Related Observation LastModified by Organization Detai ls LastModified Time None Recorded Concern Status LastModified by Organization Details LastModified Time None Recorded Advance Directives Directive None Recorded Payers Insurance Date Sequence Insurance Name Policy Number Policy Ramires Covered Member ID Ramires Member ID Guarantor Name 12/11/2022 1 [employer] - OPEN ACCESS Camilaconrado Christianson [id number] OI Camila Christianson Notes Date Note Type Note Provider Name and Address Organization Details Recorded Time 12/14/2022 text/html 57 yo female com es in for follow up in management of uncontrolled type 2 DM (A1C of 8.1%), dyslipidemia and hashimotos. last seen in Oct 2021 at that time we continued on ozempic 0.5 mg SQ weekly and metformin. we increased rosuvastatin to three times weekly. we continued lisinopril for BP control. we recommended thyroid support for hashimotos. She was not able to get ozempic due to new financial stressors that have come back up. She restarted the ozempic two months ago and and now up to 0.5 mg once weekly-she feels better and sugars are running consistently under 140 mg/dL. She is not able to afford the ozempic but she does qualify for assistance. She was getting dizzy on the lisinopril 10 so split in half and BP better on low dose. labs from 11/08:microalbumin 9 ug/mgTFT normalglucose 144 mg/dLALT 50 U/LCr soalof397/74/66/72F T3 of 2.6 pg/mLTPO 555 IU/ml Diana Lilly MD [address] [facility] [address], [place], [address], [place] [facility] [place] [facility] 12/14/2022 13:48:20 OBGyn Episode No OBEpisode recorded.
--- OUTSIDE RECORDS SUMMARY | 2024-09-18 14:08 | XMS_ITS | Encounter Summary ---
Author Organization [employer] Address 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
--- OUTSIDE RECORDS SUMMARY | 2024-09-18 14:08 | XMS_ITS | Encounter Summary ---
Author Organization [facility] Address 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
--- OUTSIDE RECORDS SUMMARY | 2024-09-18 14:08 | XMS_ITS | Clinical Summary ---
Author Organization [facility] Address [address] [place] [address] Phone Care Team Providers Care Comber Tender Name Role Phone Provider, Not On File Primary Care Provider Unav ailable Allergies Active Allergy Reactions Criticality Noted Date Comments Cat Dander Itching 08/08/2024 Medications HYDROcodone-acet aminophen (NORCO) 5-325 MG TabletIndication s:Low back pain with right-sided sciatica Take 1 Tablet by mouth every 8 hours as needed for Severe pain. 12 Tablet 08/08/2024 Active Encounters Date Type Department Care Team Description 08/08/2024 10:09 AM CDT - 08/08/2024 12:20 PM CDT [facility] [address] [place] [address] Terrell Rios PAC Low back pain with right-sided sciatica Discharge Disposition: Discharged to home or Selfcare 08/08/2024 Travel from Last 3 Months Social History Tobacco Use Types Packs/Day Years Used Date Smoking Tobacco: Never Smokeless Tobacco: Never Tobacco Cessation:Counseling Given: Not Answered Alcohol Use Standard Drinks/Week Comments Yes 0 (1 standard drink = 0.6 oz pur e alcohol) on occasion Comments No Sex and Gender Information Value Date Recorded Sex Assigned at Not on file Legal Sex Female 9:48 PM CDT Gender Identity Not on file Sexual Orientation Not on file Last Filed Vital Signs Vital Sign Reading Time Taken Comments Blood Pressure 154/73 08/08/2024 12:07 PM CDT Pulse 85 08/08/2024 12:07 PM CDT Temperature 36.1 C (96.9 F) 08/08/2024 10:03 AM CDT Respiratory Rate 18 08/08/2024 12:07 PM CDT Oxygen Saturation 100% 08/08/2024 12:07 PM CDT Inhaled Oxygen Concentration - - Weight 69.9 kg (154 lb 1.6 oz) 08/08/2024 10:03 AM CDT Height 160 cm (5' 3) 08/08/2024 10:03 AM CDT Body Mass Index 27.3 08/08/2024 10:03 AM CDT Plan of Treatment Health Maintenance Due Date Last Done Comments Hepatitis C Virus (HCV) Screening 1965 TdaP Immunization 1965 Hepatitis B Immunization (1 of 3 - 19+ 3-dose series) 1984 Pap Smear 1986 Cervical Cancer Screening (CCS) 1995 HPV/Cotest 1995 Cologuard 2010 Colonoscopy 2010 Colorectal Cancer Screening 2010 Immunochemical Fecal Occult Blood 2010 Mammogram 01/21/2022 01/21/2021, 10/18, 2018, Additional history exists SARS-COV-2 Immunization ( season) 2023 12/08/2022, 12/22/2021, 01/21/2021, Additional history exists Influenza Immunization (Season Ended) 2024 12/08/2022, 01/20/2020, 12/18/2017 Respiratory Syncytial Virus (RSV) Immunization (Adult) (1 - 1-dose 75+ series) 2040 Pneumococcal Immunization (50+ years) Completed 05/25/2023 Zoster Immunization Completed 05/25/2023, Human Papillomavirus (HPV) Immunization Aged Out No longer eligible based on patient's age to complete this topic Meningococcal Immunization (ACWY) Aged Out No longer eligible based on patient's age to complete this topic Rotavirus Immunization Aged Out No lo nger eligible based on patient's age to complete this topic Procedures Procedure Name Priority Date/Time Associated Diagnosis Comments XR LUMBAR SPINE 2 OR 3 VIEWS STAT 08/08/2024 11:45 AM CDT from Last 3 Months Results * XR LUMBAR SPINE 2 OR 3 VIEWS (08/08/2024 11:45 AM CDT) Anatomical Region Laterality Modality Spine, L-spine N/A Digital Radiogra phy 08/08/2024 11:5 0 AM CDT Impressions 08/08/2024 11:53 AM CDT IMPRESSION: Multilevel lumbar spondylosis without definite evidence of acute fracture or subluxation. Narrative 08/08/2024 11:53 AM CDT EXAM DESCRIPTION: XR LUMBAR SPINE 2 OR 3 VIEWS REASON FOR STUDY: low back pain with right sciatica x 8 days. pain worse with weight bearing and bending over. TECHNIQUE: 3 radiographic view(s) of the lumbar spine. COMPARISON: None FINDINGS: There is no definite evidence of acute fracture or subluxation involving the lumbar spine. There are multilevel degenerative changes lumbar spine with mild disc space narrowing, mild endplate osteophytosis, and facet arthropathy. There are degenerative changes bilateral sacroiliac joints with joint space narrowing and mild sclerosis. There are multiple phleboliths noted overlying the pelvis. There are mild atherosclerotic changes of the aorta. THIS IS AN ELECTRONICALLY VERIFIED FINAL REPORT 08/08/2024 11:50 AM - Electronically signed by Eduardo Wade D.O. PS: PS Report ID: [id number] Reading Location: [id number] Procedure Note Eduardo Wade DO - 08/08/2024 EXAM DESCRIPTION: XR LUMBAR SPINE 2 OR 3 VIEWS REASON FOR STUDY: low back pain with right sciatica x 8 days. pain worse with weight bearing and bending over. TECHNIQUE: 3 radiographic view(s) of the lumbar spine. COMPARISON: None FINDINGS: There is no definite evidence of acute fracture or subluxation involving the lumbar spine. There are multilevel degenerative changes lumbar spine with mild disc space narrowing, mild endplate osteophytosis, and facet arthropathy. There are degenerative changes bilateral sacroiliac joints with joint space narrowing and mild sclerosis. There are multiple phleboliths noted overlying the pelvis. There are mild atherosclerotic changes of the aorta. THIS IS AN ELECTRONICALLY VERIFIED FINAL REPORT 08/08/2024 11:50 AM - Electronically signed by Eduardo Wade D.O. PS: LOLA Report ID: [id number] Reading Location: [place] [address] IMPRESSION: Multilevel lumbar spondylosis without definite evidence of acute fracture or subluxation. Terrell Rios [facility] IMG DIAGNOSTIC ORDER JEREMIE Final Result from Last 3 Months Insurance [employer] Care Teams Comber Tender Relationship Specialty Start Date End Date Provider, Not On File MA PCP - General 08/08/24
--- OUTSIDE RECORDS SUMMARY | 2024-09-18 14:08 | XMS_ITS | Clinical Summary ---
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
== END 2024-09-18 14:03 | disposition home or self-care (01) ==
PROVIDERS: PCP Family Medicine; Visit Provider Physician Assistant Medical
DX: M54.31 Sciatica, right side (principal); M51.27 Other intervertebral disc displacement, lumbosacral region; M48.07 Spinal stenosis, lumbosacral region
CPT/HCPCS: 72148

== ENCOUNTER 2024-10-28 02:26 | Day surgery (SDC) | payer OTHER, SELFPAY ==
[2024-10-16 08:39] VITALS: BMI 26.3
--- NOTE | 2024-10-16 09:00 | SUR.PREOP ---
Report to the Outpatient Waiting Room, entrance under the green pavilion located off [facility], at time 1345 on date 10/28/24. Planned Procedure Time: 1445.? Time changes happen often and if your time is changed the preop area will call you the afternoon before. - You and your visitor will be asked to self-screen and do not enter if you have any COVID symptoms. Please call surgeon if you need to reschedule. - A mask is optional within the hospital at this time. Patients may have clear liquids (water, carbonated beverages, clear teas, apple juice) until 3 hours prior to surgery with a maximum of 20 ounces. - No food from midnight until time of surgery and no smoking, or chewing tobacco (or any form of nicotine). No chewing gum, candy or mints. Take only the following medications with a SIP of water on the morning of surgery: TAKE ALL MEDS NORMAL DO NOT STOP ANY OF YOUR OTHER PRESCRIPTION MEDICATIONS PRIOR TO SURGERY EXCEPT THE FOLLOWING Hold all vitamins and supplements for 3 days per anesthesiologist. Medications to discontinue per physician: N/A Date to take last dose: N/A Please no make-up, nail danish, hairspray, perfume, deodorant, or body powder the day of surgery.? No jewelry (including any body piercings) or valuables the day of surgery, leave them at home.? Please take a shower or bath the night before, or the morning of, surgery with an antibacterial soap.? Wear comfortable, loose fitting clothing.? Children are encouraged to wear pajamas. - Jewelry must be removed prior to entering the operating room.? Rings and piercings that are not removed may be cut off. - The hospital will not accept responsibility for valuables.? - Please leave all valuables, including medications, at home the day of surgery. If you are going home after surgery, a licensed yard truck driver must drive you home.? - NO public transportation without another adult if you receive anesthesia. - We recommend that an adult stay with you for 24 hours following discharge. - We also recommend that you do not drive, make important decision, drink alcoholic beverages, or take any drugs that were not prescribed by your health care provider for at least 24 hours after your discharge time. Follow any additional instructions given to you from your surgeon. Telephone instructions given to YANCI PANDYA and asked if any additional questions and then verbalized understanding. Patient advised to call surgeon office or pre surgery nurse liaison [phone] if any additional questions.
--- NOTE | ~2024-10-28 | XR_ITS ---
Indication:therapeutic transforaminal epidural steroid injection TECHNIQUE: Fluoroscopy used during therapeutic transforaminal epidural steroid injection performed b [place] [Reinier Coley MD] on 10/28/2024. 21 seconds of fluoroscopy time with 63 fluoroscopic images images captured. FINDINGS: Correlate with procedure note. IMPRESSION: Fluoroscopy used during therapeutic transforaminal epidural steroid injection. Reviewed, dictated and finalized at location A.
[2024-10-28 10:38] VITALS: BP 110/56; PULSE 75; RESP 16; TEMP 36.4; O2SAT 100
--- NOTE | 2024-10-28 11:20 | WPDHPUPDATE1 ---
History and Physical Update Update Date/Time: 10/28/24 11:20 History and Physical has been reviewed, including an updated exam of the patient. There are NO changes in the patient's condition. Risks, benefits, and alternatives have been discussed and questions answered. Patient agrees to proceed with procedure.
--- NOTE | 2024-10-28 11:21 | WPDHPUPDATE1 ---
History and Physical Update Update Date/Time: 10/28/24 11:21 History and Physical has been reviewed, including an updated exam of the patient. There are NO changes in the patient's condition. Risks, benefits, and alternatives have been discussed and questions answered. Patient agrees to proceed with procedure.
--- NOTE | 2024-10-28 11:22 | W.PM.PROC2 ---
Procedure Note - Detailed Date of Procedure 10/28/24 Pre-op Diagnosis lumbosacral radiculopathy Post-op Diagnosis Same Procedure Performed Right lumbosacral Transforaminal Epidural Steroid Injection under Fluoroscopic Guidance and with Contrast Control at L5-S1, S1-S2. Surgeon Reinier Coley MD Anesthesia Local Description of Procedure INFORMED CONSENT: Risks, benefits and alternatives to the procedure were discussed in detail with the patient who expressed explicit understanding and consent to proceed. Patient was informed verbally and in written form regarding the risks associated with the procedure including the low risk of serious infection, bleeding/bruising, allergic reaction, nerve or organ injury, paralysis, procedural site pain or discomfort, worsening pain and/or mobility, failure to treat and/or disfigurement. The patient expressed explicit understanding and consent to proceed. All materials required for the procedure were available prior to procedure start. Site and side was marked prior to procedure and confirmed in the presence of the patient. PROCEDURE IN DETAIL: The patient was brought to the procedural suite and placed in the prone position. Patient was made comfortable with use of pillows under the head/chest, hips and ankles. Skin overlying the injection site was prepared broadly with ChloraPrep applicator and draped in a sterile manner. Aseptic technique was employed throughout. The endplates of the vertebral body at the site of interest were aligned in the AP view. Ipsilateral oblique angulation was utilized to better visualize the neuroforamen of interest. Local anesthesia was established by infiltration with approximately 5 mL of 0.5% PF lidocaine via a 1-1/2 inch 27-gauge needle. A 22-gauge 3.5 inch Aaliyah (pencil point) spinal needle was advanced until the needle approached the 6 o'clock position on the pedicle just superior to the exiting nerve root. on the right at L5-S1. Lateral view was utilized to confirm appropriate position of the needle tip within the superior and posterior portion of the respective foramen. In an AP view, 1 mL of Omnipaque 300 contrast medium was injected after negative aspiration for CSF, blood or other bodily fluid, showing appropriate neurogram without evidence of intravascular or intrathecal spread of contrast. Digital subtraction imaging was used with an additional 1ml of the same contrast medium to confirm absence of intravascular contrast spread. A 1mL solution containing 5 mg of dexamethasone was injected after negative repeat aspiration. Appropriate spread of the injectate was confirmed with washout of previously injected contrast. No parasthesias were elicited. Needle was removed completely intact without difficulty. The same exact procedure was repeated for all remaining levels on the ipsilateral side, right S1-S2 neuroforamen, modified as necessary to accommodate for the new target location with identical findings and results and no evidence of complication. Images were saved and documented in the patient chart. Patient's skin was cleaned and sterile bandage applied. The patient tolerated the procedure well. The patient was transported to the recovery area in stable condition where they were observed for an appropriate amount of time prior to discharge, without evidence of complication. The patient was instructed to avoid excessive activity for the next 48 hours, including climbing and frequent use of stairs. Showers only for 48 hours. They were instructed not to drive or operate heavy machinery for 24 hours. They are to monitor for severe headaches, fevers, chills, night sweats, erythema/swelling at the site or any other signs of infection, bleeding/bruising, bowel or bladder changes as well as new pain, weakness or numbness in the upper or lower extremity. Should they notice these changes, they are instructed to call our office immediately or report directly to the nearest Emergency Department if no answer or if after posted office hours. COMPLICATIONS: None COMMENTS: None CONTRAST WASTED: 26 mL Omnipaque 300. STEROID WASTED: 0 mg of betamethasone. Complications No immediate complications Condition Stable Disposition Same day [facility] Billing Surgery - Charge Forward: Surgery Billing
[2024-10-28 11:37] VITALS: BP 112/58; PULSE 69; RESP 16; O2SAT 100
[2024-10-28] MEDS: LIDOCAINE 2% PF LOCAL INJ 5 ML VIAL INFILTRATE (11:40)
[2024-10-28] MEDS: dexAMETHasone SOD PHOS INJ 10 MG/ML 1 ML VIAL IM (11:41)
[2024-10-28 11:42] VITALS: BP 116/59; PULSE 80; RESP 18; O2SAT 100
[2024-10-28 11:47] VITALS: BP 131/67; PULSE 82; RESP 16; O2SAT 100
[2024-10-28 11:54] VITALS: BP 123/63; PULSE 67; RESP 16; O2SAT 100
== END 2024-10-28 12:09 | disposition home or self-care (01) ==
PROVIDERS: PCP Family Medicine; Visit Provider Anesthesiology Pain Medicine
PROC: (CPT 64483; principal; 2024-10-28 14:45)
DX: M47.817 Spondylosis without myelopathy or radiculopathy, lumbosacral region (principal); M51.27 Other intervertebral disc displacement, lumbosacral region; E78.5 Hyperlipidemia, unspecified; I10 Essential (primary) hypertension; E11.9 Type 2 diabetes mellitus without complications; E06.3 Autoimmune thyroiditis; Z87.442 Personal history of urinary calculi; Z80.0 Family history of malignant neoplasm of digestive organs; Z82.49 Family history of ischemic heart disease and other diseases of the circulatory system
CPT/HCPCS: 64483; 64484; 99199; J0702; J1100; J2003; Q9965

== ENCOUNTER 2024-12-24 08:00 | Outpatient (RCR) | payer OTHER, SELFPAY ==
--- NOTE | 2024-10-24 10:52 | OPREHPOC ---
Outpatient Therapy Plan of Care This is a Multidisciplinary Plan of Care that may contain components documented by all disciplines (PT, OT, and ST.) PT Problem 1 PT Problem #1 Knowledge Deficit PT Goal 1 Goal / Goal Update 1* independent with HEP 2* demonstrate correct body mechanics with lifting from the floor Target Visit 10 PT Problem 2 PT Problem #2 Pain PT Goal 1 Goal / Goal Update 1* pt report pain rating at worst of 3/10 2* radicular pain to R knee at worst 3* pt report walking/standing tolerance of 60 minutes 4* pt report with sleeping, awaken 1x/night due to pain Target Visit 10 PT Problem 3 PT Problem #3 Impaired Strength PT Goal 1 Goal / Goal Update 1* increase strength of trunk and hips to 4/5, to improve stability to spine 2* 2 minute walking test distance of 450' without device 3* pt report NOT using the cane for mobility Target Visit 10 PT Problem 4 PT Problem #4 Impaired Flexibility PT Goal 1 Goal / Goal Update pt perform without an increase in pain reported: 1* supine R hip IR 2* supine R hip ER 3* hamstring stretch on R with supine SLR to 50' Target Visit 10
--- NOTE | 2024-10-24 10:52 | PTOPEVAL1 ---
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, is on leave from having to go into the office to work; have seen neurosurgeon- going to try and avoid surgery, start with injections; pain management- to have first injection on Oct 28; MRI_ L5-S1 large disc extrusion her aunt is a retired OT and is doing aquatic exercises with her and they are helping is doing prone push ups and all 4 arch/sag, supine piriformis stretch; Avoiding twisting of trunk is using a cane now for walking due to pain; was initially using a walker and dragging R leg; pain is getting better; activity: is disabled and she does all home and yard work; work at [employer] job- have sit/stand desk; active and no assistive device. Reported Pain Level Pain Score Self Report Additional Pain Score Comments pain range in the past week 1-6/10; radicular constant into R LE to toes/foot increase pain; bending forward, lifting, sit 20-30 min; stand/walk 30 min; decrease pain: change positions, walking, heat, ice sleeping: pain awakens her 3x/night-- tend to sleep only on her back with pillows under her knees Assessment PT Clinical Summary Camila has the diagnosis of lumbar radiculopathy, constant into R LE to toes. Onset in July with more activity and yard work. Pain has decreased since onset, but limiting her sleeping, mobility and activity level. Back Index rating of 60% limitation in activity level. She is working from home and using a cane for walking to accommodate her pain. MRI is positive for L 5-S1 large disc extrusion; have seen pain management and neurosurgeon, to have first injection next week. Her order includes aquatic therapy, but she has been doing aquatic therapy with her aunt, who is a retired OT who also did aquatic therapy; discussed with pt and they are doing a good program, so she will continue with her. And will include in our plan of care, in case she wants to do with us. With the evaluation: pain is increased with supine R hip IR, ER and hamstring stretch; 2 minute walking test distance with quad cane of 350' decrease strength of trunk and hip due to pain. Skilled PT services are indicated for modalities to decrease pain, therapeutic exercises to increase strength and flexibility with education for HEP and progression to gait without device, pain management and body mechanics. Plan of Care Interventions Aquatic Therapy,Electrical Stimulation,Gait Training,Hot Pack/Cold Pack,Manual Therapy, Mechanical Traction,Neuro Re-education,Patient/ Caregiver Education,Therapeutic Activities, Therapeutic Exercise,Ultrasound,Other Other Interventions taping PT Services Indicated Yes Treatment Frequency and 1-2x/wk for 10 visits; pt requests 1x/wk due to Duration high co pay with her insurance These treatments will address the objective and functional deficits as defined above. The patient will be advanced safely and appropriately in order for the patient to progress towards his/her prior level of function. Additional exercises will be introduced and as well as a comprehensive home exercise program upon discharge, if needed, ?to ensure carryover of functional gains achieved in the clinic. This treatment plan has been reviewed and agreement upon by the patient.
--- NOTE | 2024-12-24 09:00 | OPREHPOC ---
Outpatient Therapy Plan of Care This is a Multidisciplinary Plan of Care that may contain components documented by all disciplines (PT, OT, and ST.) PT Problem 1 PT Problem #1 Knowledge Deficit PT Goal 1 Goal / Goal Update 1* independent with HEP 2* demonstrate correct body mechanics with lifting from the floor 12-24-24 d/c goals met Target Visit 10 Progress Met PT Problem 2 PT Problem #2 Pain PT Goal 1 Goal / Goal Update 1* pt report pain rating at worst of 10 2* radicular pain to R knee at worst 3* pt report walking/standing tolerance of 60 minutes 4* pt report with sleeping, awaken 1x/night due to pain 12-24-24 d/c goals met except #1 is 06/26 Target Visit 10 Progress Partially Met PT Problem 3 PT Problem #3 Impaired Strength PT Goal 1 Goal / Goal Update 1* increase strength of trunk and hips to 4/5, to improve stability to spine 2* 2 minute walking test distance of 450' without device 3* pt report NOT using the cane for mobility 12-24-24 d/c goals met Target Visit 10 Progress Met PT Problem 4 PT Problem #4 Impaired Flexibility PT Goal 1 Goal / Goal Update pt perform without an increase in pain reported: 1* supine R hip IR 2* supine R hip ER 3* hamstring stretch on R with supine SLR to 50' 12-24-24 d/c goals met Target Visit 10 Progress Met
--- NOTE | 2024-12-24 09:00 | PTOPDC ---
Assessment and note entered by Dena Urbano, PT Assessment Status Discharge ICD-10 Condition Codes (PT) Radiculopathy, lumbar region M54.16 Onset July 2024 Subjective Information going to join the [facility] for the water exercises; saw pain management yesterday- have a new script for lyrica, to help for pain with sleeping at night; still having issues with squatting to lift dog bowl off floor; am still working from home; have to return to the office at the end of December , they have me a sit/stand desk; have able to walk 1 mile now, used to walk 1-2 miles for fitness; not returned to all my yard or home tasks- neighbor helping; do not want to have set backs with starting to do more, afraid I will start having more pain again; want to get back to normal again and doing everything; frustrated by this taking so long to get better. Want to stop therapy for now, doing OK on all my exercises and know what to do. Reported Pain Level Pain Score Self Report Additional Pain Score Comments pain range in the past week 1-10; radicular pain intermittent in lateral hip> posterior thigh to above knee; occasional tingle in R foot increase pain: when first wake up in AM; squatting to pick dog bowl up from floor; decrease pain: change position, heat, ice is not taking any over the counter meds; new script for lyrica; report during sleeping, awaken 1x/ night due to back pain and have to reposition; able to be up/ walking/ standing for about 2 hours no longer using the cane; discussed back brace use PRN for heavier tasks and when having more pain; Assessment PT Clinical Summary Camila has received a total of 10 PT sessions. She has improved in all areas: pain rating from 1- 6/10 to 1-410; radicular pain was constant to R toes, now intermittent to posterior thigh above knee; sleeping reported awaken 3x and now 1x/ night due to back pain; reported standing/walking tolerance from 30 minutes to 2 hours; self assessment rating with functional score of back index from 60 to 24% limitation in activity level; no longer have pain with R hip IR and ER motions in supine and hamstring stretch; increase R hamstring flexibility from SLR of 30' with pain to 70' and without pain; increase strength of trunk and hips; education for body mechanics, self management of pain and posture. The goals were met, except pain rating at worst rating. Discharge PT. She is to continue with her HEP and activity as tolerated. Plan of Care PT Services Indicated No
== END 2024-12-24 11:37 | disposition home or self-care (01) ==
LOC: ANHPT 08:00
PROVIDERS: PCP Family Medicine; Visit Provider Physician Assistant Medical
DX: M54.31 Sciatica, right side (principal); M51.27 Other intervertebral disc displacement, lumbosacral region
CPT/HCPCS: 97014; 97110; 97140; 97161; 97530; G0283

== ENCOUNTER 2025-02-02 01:05 | Day surgery (SDC) | payer OTHER, SELFPAY ==
--- NOTE | 2025-01-26 12:08 | SUR.PREOP ---
[facility] has started construction of its new state of the art ER which will open Spring 2026. With this, we anticipate parking may be a challenge for some our surgical patients and families. Parking spaces are limited but are available for all Surgical, obstetrics, and ER patients sharing this lot. If you arrive and find you are having a hard time finding a parking space, please note that we understand the challenges, please drive around the hospital and park near Hospital Entrance 1. When you enter this entrance, you can ask a volunteer to direct or take you back to the surgical waiting area to check in. We appreciate everyone?s understanding of these expected challenges while we build for your future. Report to the Outpatient Waiting Room, entrance under the green pavilion located off [address], at time _1:45PM_ on date _02/02/25_. Planned Procedure Time: _2:45PM_.? Time changes happen often and if your time is changed the preop area will call you the afternoon before. - You and your visitor will be asked to self-screen and do not enter if you have any COVID symptoms. Please call surgeon if you need to reschedule. - A mask is optional within the hospital at this time. Patients may have a light meal that day. Nothing to eat or drink 2hrs prior to surgery. Take only the following medications with a SIP of water on the morning of surgery: __all scheduled medication__ DO NOT STOP ANY OF YOUR OTHER PRESCRIPTION MEDICATIONS PRIOR TO SURGERY Medications to discontinue per physician __None__ Date to take last dose__n/a___ Please no make-up, nail hong konger, hairspray, perfume, deodorant, or body powder the day of surgery.? No jewelry (including any body piercings) or valuables the day of surgery, leave them at home.? Please take a shower or bath the night before, or the morning of, surgery with an antibacterial soap.? Wear comfortable, loose fitting clothing.? - Jewelry must be removed prior to entering the operating room.? Rings and piercings that are not removed may be cut off. - The hospital will not accept responsibility for valuables.? - Please leave all valuables, including medications, at home the day of surgery. If you are going home after surgery, a licensed backhaul driver must drive you home.? - NO public transportation without another adult if you receive anesthesia. - We recommend that an adult stay with you for 24 hours following discharge. - We also recommend that you do not drive, make important decision, drink alcoholic beverages, or take any drugs that were not prescribed by your health care provider for at least 24 hours after your discharge time. Follow any additional instructions given to you from your surgeon. Telephone instructions given to __Janice__and asked if any additional questions and then verbalized understanding. Patient advised to call surgeon office or pre surgery nurse liaison [phone] if any additional questions.
[2025-01-26 12:24] VITALS: BMI 25.7
--- NOTE | ~2025-02-02 | XR_ITS ---
EXAM/PROCEDURE: XR fluoroscopy no charge HISTORY: LUMBAR STEROID INJECTION COMPARISON: None available. TECHNIQUE: Fluoroscopic guided pain management images Fluoroscopy time: 31.3 seconds DAP: 4.0316 Leon per square centimeter IMPRESSION: Fluoroscopic guidance for pain management. No radiologist present for this procedure. See procedure/operative notes for complete evaluation. Reviewed, dictated and finalized at location [facility]. [facility] IMPRESSION: Fluoroscopic guidance for pain management. No radiologist present for this proc edure. See procedure/operative notes for complete evaluation.
--- OUTSIDE RECORDS SUMMARY | 2025-02-02 01:09 | XMS_ITS | Clinical Summary ---
Author Organization [facility] Address [address] [place] [address] Phone Care Team Providers Care Economics Department Chair Name Role Phone Provider, Not On File Primary Care Provider Unav ailable Allergies Active Allergy Reactions Criticality Noted Date Comments Cat Dander Itching 08/08/2024 Medications HYDROcodone-acet aminophen (NORCO) 5-325 MG TabletIndication s:Low back pain with right-sided sciatica Take 1 Tablet by mouth every 8 hours as needed for Severe pain. 12 Tablet 08/08/2024 Active Social History Tobacco Use Types Packs/Day Years [...] 01/21/2022 01/21/2021, 10/18, 2018, Additional history exists Influenza Immunization (#1) 11/17/202411/18, 01/20/2020, 12/18/2017 SARS-COV-2 Immunization ( season) 2024 12/08/2022, 12/22/2021, 01/21/2021, Additional history exists Respiratory Syncytial Virus (RSV) Immunization (Adult) (1 [...] on patient's age to complete this topic [employer] Care Teams Economics Department Chair Relationship Specialty Start Date End Date Provider, Not On File [place] PCP - General 08/08/24
--- OUTSIDE RECORDS SUMMARY | 2025-02-02 01:09 | XMS_ITS | Clinical Summary ---
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
--- OUTSIDE RECORDS SUMMARY | 2025-02-02 01:09 | XMS_ITS | Encounter Summary ---
Author Organization [employer] Address 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
--- OUTSIDE RECORDS SUMMARY | 2025-02-02 01:09 | XMS_ITS | Encounter Summary ---
Author Organization [employer] Address 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
--- OUTSIDE RECORDS SUMMARY | 2025-02-02 01:09 | XMS_ITS | Data Portability ---
Author Organization [facility], Main Office Address [address] [place] [address] Assessment No assessment recorded. Plan of Treatment Reminders Order Date Submit Date Provider Last Modified By Organization Details Last Modified Time Details Appointments None recorded. Lab None recorded. Referral None recorded. Procedures None recorded. Surgeries None recorded. Imaging None recorded. Medication Orders metformin 1,000 mg tablet 2022 023 [facility] [address] [place], [address], 3 11:22:41 Ozempic 1 mg/dose (4 mg/3 mL) subcutaneou s pen injector 2022 023 [facility] [address] [place], [address], 3 13:44:42 rosuvastati n 20 mg tablet 2022 023 [facility] [address] [place], [address], 3 11:22:37 lisinopril 5 mg tablet [address] [facility] [address] [place], [address], 3 13:47:40 Patient TargetsNo targets recorded. Patient InstructionsNo instructions recorded. Reason for Referral None Reported. Results Created Date Observation Date Name Description Value Unit Range Abnormal Flag Note LastModifiedBy Organization Detail LastModifiedTime Result Notes None recorded. Problems Name Problem SNOMED Code Status Onset Date Resolution Date Notes Provider Name and Address Organization Details Recorded Time Type 2 diabetes mellitus 64612824 Active [address] [facility] 3 18:20:15 Sadaf thyroiditi s 22895280 Active 2021 Not Available [facility] 3 18:20:15 Dyslipidem ia 913201308 Active 2021 Not Available [facility] 3 18:20:15 Well controlled type 2 diabetes mellitus 445221781 Active 2021 Not Available [facility] 3 18:20:15 Essential hypertensi on 63902431 Active [address] [facility] 3 18:20:15 Liver enzymes level above reference range 593190795 Active [address] 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 Procedures Surgical History Date Name Laterality Status Provider Name and Address Organization Details Recorded Time [address] [facility] 05/17/2022 18:19:38 Imaging Results None recorded. Procedure [...] % 99 % 88 /min 97.9 [degF] 28004.8 2 g 105/70 mm[Hg] Not Available [facility] 3 18:19:49 Date Recorded Body mass index (BMI) Body height Oxygen saturation Oxygen saturation in Arterial blood by Pulse oximetry Heart rate Body temperature Body weight Systolic And Diastolic Provider Name and Address Organization Details Last Updated DateTime 1 21.1 kg/m2 162.56 cm 99 % 99 % 76 /min 98.1 [degF] 65388.8 6 g 146/88 mm[Hg] Not Available [facility] 3 18:19:49 Date Recorded Body mass index (BMI) Body height Oxygen saturation Oxygen saturation in Arterial blood by Pulse oximetry Heart rate Body temperature Body weight Systolic And Diastolic Provider Name and Address Organization Details Last Updated DateTime 2 27.2 kg/m2 162.56 cm 97 % 97 % 81 /min 97.8 [degF] 18297.0 3 g 110/75 mm[Hg] Not Available [facility] 3 18:19:49 Date Recorded Body weight Body mass index (BMI) Body height Heart rate Body temperature Systolic And Diastolic Provider Name and Address Organization Details Last Updated DateTime 3 55073.1 6 g 27.1 kg/m2 162.56 cm 74 /min 97.3 [degF] 108/76 mm[Hg] Dasha Murguia MA [place] [facility] 3 11:08:01 Date Recorded Body mass index (BMI) Body height Oxygen saturation Oxygen saturation in Arterial blood by Pulse oximetry Heart rate Body temperature Body weight Systolic And Diastolic Provider Name and Address Organization Details Last Updated DateTime 1 26.8 kg/m2 162.56 cm 98 % 98 % 79 /min 98.1 [degF] 77006.4 1 g 138/78 mm[Hg] Not Available [facility] 3 18:19:49 Social History Question Answer Notes LastModified by Organizat ion Details LastModified Time Tobacco Smoking Status Never Smoker Not Available [facility] 05/17/2022 18:19:33 What Is Your Level Of Caffeine Consumption? Moderate [id number] Information not available 05/17/2022 In The 14 Days Before Symptom Onset, Have You Had Close Contact With A Laboratory-confirm ed COVID-19 While That Case Was Ill? No [id number] Information not available 05/17/2022 In The 14 Days Before Symptom Onset, Have You Had Close Contact With A Person Who Is Under Investigation For COVID-19 While That Person Was Ill? No [id number] Information not available 05/17/2022 Which Illicit Or Recreational Drugs Have You Used? None [id number] Information not available 05/17/2022 What Is Your Relationship Status? [id number] Information not available 05/17/2022 Have You Recently Traveled Abroad? No [id number] Information not available 05/17/2022 Sex: Female Functional Status Question Answer Note LastModified by Organizat ion Details LastModified Time What is your level of alcohol consumption? Moderate [id number] Information not available 05/17/2022 Do you or have you ever used smokeless tobacco? Never used smokeless tobacco [id number] Information not available 05/17/2022 What is your occupation? [employer] [id number] Information not available 05/17/2022 Do you or have you ever used e-cigarettes or vape? Never used electronic cigarettes [id number] Information not available 05/17/2022 Mental Status None recorded. Family History Relationship Description Onset Age of this Age Resolved Age Notes LastModified by Organization Details LastModified Time Maternal Grandmother Diabetes mellitus [id number] Not available 05/17/2022 18:19:39 Mother Diabetes mellitus [id number] [id number] Not available 05/17/2022 18:19:39 Mother Kidney disease [id number].174 [id number] Not available 05/17/2022 18:19:39 Mother Heart disease [id number] [id number] Not available 05/17/2022 18:19:39 Mother Chronic cold agglutinin disease [id number].654 [id number] Not available 05/17/2022 18:19:39 Maternal Aunt Diabetes mellitus [id number].303 [id number] Not available 05/17/2022 18:19:39 Father Diabetes mellitus [id number].257 [id number] Not available 05/17/2022 18:19:39 Father Malignant neoplasm of colon [id number] Not available 05/17/2022 18:19:39 Sister Diabetes mellitus 3 sister s [id number].031 [id number] Not available 05/17/2022 18:19:39 Sister Granulomatos is [id number].691 [id number] Not available 05/17/2022 18:19:39 Medical History Condition Response EYE PROBLEMS Y HAVE YOU BEEN HOSPITALIZED OR SEEN IN [facility] IN THE PAST YEAR ? Y DIABETES, TYPE Y Gynecological HistoryNo gynecological history recorded. Obstetrics History GPAL:G 0 P 0 0 0 0 Past Encounters Encounter ID Performer Location Encounter Start Date Encounter Closed Date Diagnosis/Indication Diagnosis SNOMED-CT Code Diagnosis ICD10 Code Diagnosis IMO Codes Diagnosis Note [id number] Diana Lilly MD [facility] [address] [place] [address] 09/07/2020 00:00:00 09/07/2020 13:05:42 [id number] Diana Lilly MD [facility] [address] [place] [address] 12/28/2020 00:00:00 12/28/2020 15:11:53 [id number] Diana Lilly MD [facility] [address] [place] [address] 05/03/2021 00:00:00 05/03/2021 18:26:51 [id number] [facility] [address] [place] [address] 12/07/2021 00:00:00 12/07/2021 14:07:09 [id number] Diana Lilly MD [facility] [address] [place] [address] 12/14/2022 10:46:57 12/14/2022 11:27:11 Well controlled type 2 diabetes mellitus 712296577 E11.9 A1C of 8.1%- patient just restarted [...] help with longevity of pen. Essential hypertension 31928143 I10 Continue on lisinopril as her blood pressure is in range and provide lower dose as this is more tolerable for patient. Dyslipidemia 452532836 E 78.5 Continue on rosuvastat in as [...] Ramires Member ID Guarantor Name 12/11/2022 1 [employer] - OPEN ACCESS Camila Sammy [id number] OI Camila Sammy Notes Date Note Type Note Provider Name and Address Organization Details Recorded Time 12/14/2022 text/html ROS as noted in the HPI 57 yo female comes in for follow up in management of [...] 9 ug/mgTFT normalglucose 144 mg/dLALT 50 U/LCr daqniu302/74/66/72F T3 of 2.6 pg/mLTPO 555 IU/ml Diana Lilly MD [address] [facility] [address], [place], [address], [place] [facility] [place] [facility] 12/14/2022 13:48:20 OBGyn Episode No OBEpisode recorded.
--- NOTE | 2025-02-02 11:11 | P.HPUP_ITS ---
History and Physical Update Update Date/Time: 02/02/25 11:11 Plan to proceed with right-sided lumbosacral transforaminal epidural steroid injection at L5-S1, S1-S2 under fluoroscopic guidance and contrast control. History and Physical has been reviewed, including an updated exam of the pa tient. There are NO changes in the patient's condition. Risks, benefits, and alternatives have been discussed and questions answered. Patient agrees to proceed with procedure.
--- NOTE | 2025-02-02 11:12 | W.PM.PROC2 ---
Procedure Note - Detailed Date of Procedure 02/02/25 Pre-op Diagnosis lumbosacral radiculopathy,spondylosis Post-op Diagnosis Same Procedure Performed Right lumbosacral Transforaminal Epidural Steroid Injection under Fluoroscopic Guidance and with Contrast Control at L5-S1, S1-S2. Surgeon Reinier Coley MD Anesthesia Local Description of Procedure INFORMED CONSENT: Risks, benefits and alternatives to the procedure were discussed in detail with the patient who expressed explicit understanding and consent to proceed. Patient was informed verbally and in written form regarding the risks associated with the procedure including the low risk of serious infection, bleeding/bruising, allergic reaction, nerve or organ injury, paralysis, procedural site pain or discomfort, worsening pain and/or mobility, failure to treat and/or disfigurement. The patient expressed explicit understanding and consent to proceed. All materials required for the procedure were available prior to procedure start. Site and side was marked prior to procedure and confirmed in the presence of the patient. PROCEDURE IN DETAIL: The patient was brought to the procedural suite and placed in the prone position. Patient was made comfortable with use of pillows under the head/chest, hips and ankles. Skin overlying the injection site was prepared broadly with ChloraPrep applicator and draped in a sterile manner. Aseptic technique was employed throughout. The endplates of the vertebral body at the site of interest were aligned in the AP view. Ipsilateral oblique angulation was utilized to better visualize the neuroforamen of interest. Local anesthesia was established by infiltration with approximately 5 mL of 0.5% PF lidocaine via a 1-1/2 inch 27-gauge needle. A 22-gauge 5.0 inch Aaliyah (pencil point) spinal needle was advanced until the needle approached the 6 o'clock position on the pedicle just superior to the exiting nerve root. on the right at L5-S1. Lateral view was utilized to confirm appropriate position of the needle tip within the superior and posterior portion of the respective foramen. In an AP view, 1 mL of Omnipaque 300 contrast medium was injected after negative aspiration for CSF, blood or other bodily fluid, showing appropriate neurogram without evidence of intravascular or intrathecal spread of contrast. Digital subtraction imaging was used with an additional 1ml of the same contrast medium to confirm absence of intravascular contrast spread. A 1mL solution containing 5 mg of dexamethasone was injected after negative repeat aspiration. Appropriate spread of the injectate was confirmed with washout of previously injected contrast. No parasthesias were elicited. Needle was removed completely intact without difficulty. The same exact procedure was repeated for all remaining levels on the ipsilateral side, right S1-S2 neuroforamen, modified as necessary to accommodate for the new target location with identical findings and results and no evidence of complication. Images were saved and documented in the patient chart. Patient's skin was cleaned and sterile bandage applied. The patient tolerated the procedure well. The patient was transported to the recovery area in stable condition where they were observed for an appropriate amount of time prior to discharge, without evidence of complication. The patient was instructed to avoid excessive activity for the next 48 hours, including climbing and frequent use of stairs. Showers only for 48 hours. They were instructed not to drive or operate heavy machinery for 24 hours. They are to monitor for severe headaches, fevers, chills, night sweats, erythema/swelling at the site or any other signs of infection, bleeding/bruising, bowel or bladder changes as well as new pain, weakness or numbness in the upper or lower extremity. Should they notice these changes, they are instructed to call our office immediately or report directly to the nearest Emergency Department if no answer or if after posted office hours. COMPLICATIONS: None COMMENTS: None CONTRAST WASTED: 26 mL Omnipaque 300. STEROID WASTED: 0 mg of dexamethasone. Complications No immediate complications Condition Stable Disposition Same day [facility] Billing Surgery - Charge Forward: Surgery Billing
[2025-02-02 12:00] VITALS: BP 149/73; PULSE 73; RESP 16; TEMP 36.1; O2SAT 100
[2025-02-02 12:40] VITALS: BP 156/90; PULSE 82; RESP 16; O2SAT 97
[2025-02-02] MEDS: BUPivacaine HCL 0.5% 10 ML AMP 3 ML INFILTRATE (12:42)
[2025-02-02] MEDS: DEXAMETHASONE SODIUM PHOSP/PF 10 MG/ML 1 ML VIAL I-LAMINAR (12:44)
[2025-02-02 12:46] VITALS: BP 160/88; PULSE 78; RESP 16; O2SAT 98
== END 2025-02-02 13:19 | disposition home or self-care (01) ==
PROVIDERS: PCP Family Medicine; Visit Provider Anesthesiology Pain Medicine
PROC: (CPT 64483; principal; 2025-02-02 13:15)
DX: M47.27 Other spondylosis with radiculopathy, lumbosacral region (principal)
CPT/HCPCS: 64483; 99199; Q9965